=== PATIENT | female | born 1975 | race Two or more races ===

== ENCOUNTER 2016-12-03 15:15 | Emergency (ER) | payer OTHER ==
[~2016-12-03] VITALS: Ht 170.2 cm; Wt 51.1 kg
[2016-12-03 15:45] LABS: HEMATOCRIT 40.9 % (36.0-46.0); MCH 29.6 PG (29.0-34.0); MCV 87.2 FL (83-99); MEAN PLAT.VOLUME 11.2 uM^3 (9.5-12.4); PLATELET COUNT 193 K/uL (156-360); RBC DIS.WIDTH-CV 11.8 % (11.8-14.6); RBC DIS.WIDTH-SD 37.7 % (39-53); RED BLOOD COUNT 4.69 M/uL (3.80-5.20); WHITE BLOOD COUNT 11.7 K/uL (4.1-10.2)
[2016-12-03 15:53] LABS: CHLORIDE 105 mEq/L (99-109); SODIUM 140 mEq/L (136-147)
[2016-12-03 15:55] LABS: GLUCOSE 86 mg/dL (70-99)
[2016-12-03 15:56] LABS: ANION GAP 12 MEQ/L (2-14)
[2016-12-03 15:59] LABS: GFR ESTIMATE (CALCULATED) > 59 mL/min/; UREA NITROGEN (BUN) 11 mg/dL (9-23)
[2016-12-03 16:05] LABS: TROP-I INTERPRETATION NEGATIVE; TROPONIN-I < 0.01 ng/mL (0.0-0.30)
[2016-12-03 16:07] LABS: QUANTITATIVE HCG < 4.0 MIU/ML
[2016-12-03] MEDS ORDERED: ZITHROMAX250 MG PO (17:43)
[2016-12-03] MEDS ORDERED: ULTRAM50 MG PO (17:43)
[2016-12-03 17:58] VITALS: BP 129/65
== END 2016-12-03 17:59 | disposition home or self-care (01) ==
LOC: EME 15:15
PROVIDERS: Nurse Practitioner Family
DX: J18.9 Pneumonia, unspecified organism (principal); R07.9 Chest pain, unspecified
CPT/HCPCS: 71260; 80048; 84484; 84702; 85027; 93005; 99281; 99283; J7030